=== PATIENT | female | born 1940 | race Asian ===

== ENCOUNTER 2016-11-06 22:15 | Inpatient (IN) | payer MEDICARE, MEDICAID ==
[~2016-11-06] VITALS: Ht 152.4 cm; Wt 53.3 kg
[~2016-11-06 22:15] MED LIST: ASPI81CH58; FOLI1TAB51; FOLI1TAB6; OMEG875C; [UNRECOGNIZED DRUG - CODE]; [UNRECOGNIZED DRUG - CODE]
[2016-11-06 22:58] LABS: Basophils # (auto) 0 uL; Basophils % (auto) 0.2 % (0.0-2.0); Eosinophils # (auto) 0 uL; Eosinophils % (auto) 0.7 % (0.0-7.0); Hematocrit 42.4 % (36.0-46.0); Hemoglobin 14.3 g/dL (12.2-16.2); Lymphocytes # (auto) 1.3 uL; Lymphocytes % (auto) 19.4 % (10.0-50.0); Mean Corpuscular Hemoglobin 33.1 pg (28.0-32.0); Mean Corpuscular Hgb Conc. 33.7 g/dL (32.0-36.0); Mean Corpuscular Volume 98.1 fL (80.0-100.0); Mean Platelet Volume 7.4 fL (7.4-10.4); Monocytes # (auto) 0.4 uL; Monocytes % (auto) 6.2 % (0.0-12.0); Neutrophils # (auto) 4.8 uL; Neutrophils % (auto) 73.5 % (37.0-80.0); Platelet Count (auto) 271 10^3/uL (140-450); White Blood Cell 6.5 10^3/uL (4.4-10.8)
[2016-11-06 23:16] LABS: INR 1.04 (0.9-1.15); Partial Thromboplastin Time 28.2 sec (22.64-33.71); Prothrombin Time 10.7 sec (9.37-12.3)
[2016-11-06 23:19] LABS: Calcium 9.4 mg/dL (8.5-10.1)
[2016-11-06 23:23] LABS: Albumin 4.2 g/dL (3.4-5.0); BUN/Creatinine Ratio 17.8
[2016-11-06 23:26] LABS: Bilirubin, Total 1.1 mg/dL (0.2-1.0); Total Protein 8.9 g/dL (6.4-8.2)
[2016-11-06 23:35] LABS: Potassium 2.7 mmol/L (3.5-5.1)
[2016-11-07] VITALS (7 sets, daily range): BP systolic 126–150; BP diastolic 66–92
[2016-11-07] MEDS ORDERED: ONDANSETRON HCL 4 MG/2 ML VIAL IV ONE (01:15)
[2016-11-07] MEDS ORDERED: SOD CHL 0.9%/ KCL 40MEQ 1,000 ML IV ONE (02:15)
[2016-11-07] MEDS ORDERED: LABETALOL HCL 5 MG/ML 4ML SYRINGE IV ONE (03:00)
[2016-11-07] MEDS ORDERED: TEMAZEPAM 15 MG CAP PO PRN (04:15)
[2016-11-07] MEDS ORDERED: HYDROcodone-ACET 5/325MG TAB PO PRN (04:15)
[2016-11-07] MEDS ORDERED: ACETAMINOPHEN 325 MG TAB PO PRN (04:15)
[2016-11-07] MEDS ORDERED: SODIUM CHLORIDE 0.9% 500 ML IV ONE (04:15)
[2016-11-07] MEDS ORDERED: ONDANSETRON HCL 4 MG/2 ML VIAL IV PRN (04:15)
[2016-11-07] MEDS ORDERED: cloNIDine HCL 0.1 MG TAB PO PRN (04:15)
[2016-11-07] MEDS: SODIUM CHLORIDE 0.9% 1,000 ML IV SCH ×2 (07:13→18:23)
[2016-11-07] MEDS: LEVOTHYROXINE SODIUM 25 MCG TAB PO SCH ×2 (07:13→07:29)
[2016-11-07] MEDS: ASPirin 81 mg TAB PO SCH (10:00)
[2016-11-07] MEDS ORDERED: ENOXAPARIN SOD 30 MG/0.3 ML SYRINGE SC SCH (10:00)
[2016-11-07] MEDS: PANTOPRAZOLE SODIUM 40 MG/10 ML VIAL IV SCH (10:23)
[2016-11-07] MEDS: HCTZ 25 MG TAB PO SCH (10:23)
[2016-11-07] MEDS: ATENOLOL 25 MG TAB PO SCH (10:24)
[2016-11-07] MEDS: ENOXAPARIN SOD 40 MG/0.4 ML SYRINGE SC SCH (10:25)
[2016-11-07] MEDS ORDERED: POTASSIUM CHLORIDE 40 MEQ, LIDOCAINE 1% (LOCAL ANESTH.) 4 ML in SODIUM CHL 0.9% 250 ML IV ONE (16:00)
[2016-11-08 04:51] LABS: Basophils # (auto) 0 uL; Basophils % (auto) 0.4 % (0.0-2.0); Eosinophils # (auto) 0.1 uL; Eosinophils % (auto) 1.6 % (0.0-7.0); Hemoglobin 12.6 g/dL (12.2-16.2); Lymphocytes # (auto) 1.8 uL; Lymphocytes % (auto) 34.3 % (10.0-50.0); Mean Corpuscular Hgb Conc. 33.1 g/dL (32.0-36.0); Mean Corpuscular Volume 99.8 fL (80.0-100.0); Mean Platelet Volume 7.7 fL (7.4-10.4); Monocytes # (auto) 0.5 uL; Monocytes % (auto) 9.9 % (0.0-12.0); Neutrophils # (auto) 2.9 uL; Neutrophils % (auto) 53.8 % (37.0-80.0); Platelet Count (auto) 245 10^3/uL (140-450); White Blood Cell 5.3 10^3/uL (4.4-10.8)
[2016-11-08 05:00] VITALS: BP 156/86
[2016-11-08 05:15] LABS: Albumin 3.8 g/dL (3.4-5.0); BUN/Creatinine Ratio 18.2; Bilirubin, Total 1.1 mg/dL (0.2-1.0); Calcium 9.1 mg/dL (8.5-10.1); Magnesium 1.9 mg/dL (1.6-2.6); Total Protein 7.5 g/dL (6.4-8.2)
[2016-11-08] MEDS: LEVOTHYROXINE SODIUM 25 MCG TAB PO SCH (06:30)
[2016-11-08 08:49] VITALS: BP 133/90
[2016-11-08] MEDS: ASPirin 81 mg TAB PO SCH ×2 (09:48→10:00)
[2016-11-08] MEDS: SODIUM CHLORIDE 0.9% 1,000 ML IV SCH (09:48)
[2016-11-08] MEDS: HCTZ 25 MG TAB PO SCH ×2 (09:48→10:00)
[2016-11-08] MEDS: ENOXAPARIN SOD 40 MG/0.4 ML SYRINGE SC SCH (09:49)
[2016-11-08] MEDS: ATENOLOL 25 MG TAB PO SCH (09:49)
[2016-11-08] MEDS: PANTOPRAZOLE SODIUM 40 MG/10 ML VIAL IV SCH ×2 (09:49→10:00)
[2016-11-08] MEDS ORDERED: POTASSIUM CHL 20 Meq TABLET PO ONE ×2 (10:00→12:30)
[2016-11-08 12:36] VITALS: BP_SYST 146; BP_SYST 147; BP_SYST 155; BP_DIAS 79; BP_DIAS 84
[2016-11-08] MEDS ORDERED: PANT40TA2 PO (12:52)
[2016-11-08] MEDS ORDERED: ATOR20TA PO (12:52)
[2016-11-08 14:05] VITALS: BP 147/79
== END 2016-11-08 16:00 | disposition home or self-care (01) | DRG 866 ==
LOC: ER 22:15 → OVERFLOW 22:16 → EAST 11-07 05:35
PROVIDERS: ADMIT Nurse Practitioner; ATTEND Internal Medicine
DX: B34.9 Viral infection, unspecified (principal); E87.1 Hypo-osmolality and hyponatremia; D32.9 Benign neoplasm of meninges, unspecified; E03.9 Hypothyroidism, unspecified; E78.5 Hyperlipidemia, unspecified; E86.0 Dehydration; E87.6 Hypokalemia; E87.8 Other disorders of electrolyte and fluid balance, not elsewhere classified; I10 Essential (primary) hypertension; I67.2 Cerebral atherosclerosis; R73.9 Hyperglycemia, unspecified; R00.0 Tachycardia, unspecified; Z82.3 Family history of stroke; Z79.82 Long term (current) use of aspirin; Z79.899 Other long term (current) drug therapy
CPT/HCPCS: 36415; 70450; 80053; 80061; 82150; 83690; 83735; 84132; 84443; 84484; 85025; 85610; 85730; 93005; 96361; 96374; C9113; J2001; J2405; J3490